=== PATIENT | female | born 1960 | race Caucasian/White ===

== ENCOUNTER 2016-10-03 19:22 | Inpatient (IN) | payer MEDICAID ==
[~2016-10-03] VITALS: Ht 162.6 cm; Wt 88.4 kg
[~2016-10-03 19:22] MED LIST: ARIP5TAB13; ASPI-231 PO; BACL-63 PO; BUME1TAB PO; BUPR75TA4; CARV6.2551 PO; CLOP75TA41 PO; ESOM40CA39; ETOD400T PO; FERR325T PO; HYDR-2652 PO; LOS50T PO; METF-316 PO; NITR0.4S29 SL; OMEP20CA5 PO; POTA8TAB2 PO; PREG75CA PO; TRAM-297 PO
[2016-10-03 21:26] LABS: Basophils # (auto) 0 uL; DEFINITIVE VIEW TRANSMISSION; Eosinophils # (auto) 0.1 uL; Hemoglobin 9.3 g/dL (12.2-16.2); SUSPECT VIEW TRANSMISSION
[2016-10-03 21:31] LABS: Eosinophils % (auto) 1.8 % (0.0-7.0); Lymphocytes % (auto) 14.5 % (10.0-50.0); Mean Corpuscular Hemoglobin 19.4 pg (28.0-32.0); Mean Corpuscular Hgb Conc. 28.3 g/dL (32.0-36.0); Mean Corpuscular Volume 68.7 fL (80.0-100.0); Mean Platelet Volume 10.6 fL (7.4-10.4); Monocytes # (auto) 0.7 uL; Monocytes % (auto) 11.2 % (0.0-12.0); Neutrophils # (auto) 4.8 uL; Neutrophils % (auto) 72.5 % (37.0-80.0); Platelet Count (auto) 151 10^3/uL (140-450); White Blood Cell 6.6 10^3/uL (4.4-10.8)
[2016-10-03 22:10] LABS: Anisocytosis Moderate; Hypochromia Moderate; Ovalocytes MODERATE; Platelet Estimate Adequate
[2016-10-03 22:11] LABS: Burr Cells FEW; Microcytosis Marked
[2016-10-03 22:21] LABS: BUN/Creatinine Ratio 15.7; Calcium 8.2 mg/dL (8.5-10.1); Potassium 3.5 mmol/L (3.5-5.1)
[2016-10-03 22:23] LABS: Bilirubin, Total 0.3 mg/dL (0.2-1.0); Total Protein 5.9 g/dL (6.4-8.2)
[2016-10-03] MEDS ORDERED: IPRATROPIUM BROM 0.5 MG/2.5ML INH SOL NEB ONE (23:45)
[2016-10-03] MEDS ORDERED: ALBUTEROL SULF 2.5 MG/0.5ML(0.5%) NEB SOLN NEB ONE (23:45)
[2016-10-04] MEDS ORDERED: cefTRIAXone 1GM/50ML D5W 50 ML IV ONE ×2 (05:45→10:30)
[2016-10-04] MEDS ORDERED: MORPHINE SULF INJ 2 MG/ML SYRINGE 1ML IV PRN ×2 (10:00)
[2016-10-04] MEDS ORDERED: ONDANSETRON HCL 4 MG/2 ML VIAL IV PRN (10:00)
[2016-10-04] MEDS ORDERED: DOCUSATE SOD 100 MG CAP PO PRN (10:00)
[2016-10-04] MEDS ORDERED: NITROGLYCERIN 0.4 MG SL TAB SL PRN (10:00)
[2016-10-04] MEDS ORDERED: TEMAZEPAM 15 MG CAP PO PRN (10:00)
[2016-10-04 10:03] LABS: Urine Bilirubin Negative (Negative); Urine Blood Negative /uL (Negative); Urine Color Yellow (Yellow); Urine Ketone Negative (Negative); Urine Nitrite Negative (Negative); Urine RBC 2 /hpf (0 - 4); Urine Squamous Epithelial Cell FEW /hpf (<5); Urine Urobilinogen Normal (Negative); Urine pH 5.5 (5.0-8.0)
[2016-10-04 10:07] LABS: Urine Glucose 4+ mg/dL (Normal)
[2016-10-04] MEDS ORDERED: AZITHROMYCIN 500MG/D5W 250ML 250 ML IV ONE (10:15)
[2016-10-04] MEDS ORDERED: BACLOFEN 10 MG TAB PO PRN (10:15)
[2016-10-04] MEDS ORDERED: traMADol HCL 50 MG TAB PO PRN (10:15)
[2016-10-04] MEDS ORDERED: ASPirin-EC 81 mg tab PO ONE (10:30)
[2016-10-04] MEDS ORDERED: BUMETANIDE 1 MG TAB PO ONE (10:30)
[2016-10-04] MEDS ORDERED: buPROPion HCL 75 MG TAB PO ONE (10:30)
[2016-10-04] MEDS ORDERED: chlordiazePOXIDE HCL 25 MG CAP PO PRN (10:30)
[2016-10-04] MEDS ORDERED: THIAMINE INJ 100 MG, MULTIPLE VITAMIN 10 ML, FOLIC ACID 1 MG, MAGNESIUM SULF SDV 50% 8 ... IV ONE ×5 (10:30)
[2016-10-04] MEDS ORDERED: CARVEDILOL 3.125 MG TAB PO ONE (10:30)
[2016-10-04] MEDS ORDERED: PHYTONADIONE (VIT K)10 MG/ML 1ML VIAL SUBCUT ONE (10:30)
[2016-10-04] MEDS ORDERED: PANTOPRAZOLE 40 MG TAB PO ONE (10:30)
[2016-10-04] MEDS ORDERED: ALUM & MAG HYDROX-SIMETH LIQ(MAALOX) 30 ML PO PRN (10:30)
[2016-10-04] MEDS: MULTIPLE VITAMIN TAB PO SCH (11:13)
[2016-10-04] MEDS: FAMOTIDINE 20 MG TAB PO SCH ×2 (11:21→21:39)
[2016-10-04] MEDS: hydrALAZINE HCL 25 MG TAB PO SCH ×3 (12:13→21:47)
[2016-10-04] MEDS: Boost Glucose Control 8 Ounces PO SCH ×2 (12:14→18:29)
[2016-10-04] MEDS: IPRATROPIUM BROM 0.5 MG/2.5ML INH SOL NEB SCH ×2 (12:50→19:04)
[2016-10-04] MEDS: ALBUTEROL SULF 2.5 MG/0.5ML(0.5%) NEB SOLN NEB SCH ×2 (12:50→19:04)
[2016-10-04 13:00] VITALS: BP 158/96
[2016-10-04] MEDS: PREGABALIN CAPSULE 75 MG CAP PO SCH ×2 (13:54→21:39)
[2016-10-04] MEDS: SODIUM CHLOR 0.9% PF (SALINE LOCK) 10ML VIAL IV SCH ×2 (13:55→22:07)
[2016-10-04 14:13] VITALS: BP 158/96
[2016-10-04 14:39] LABS: INR 1.09 (0.9-1.15); Prothrombin Time 11.2 sec (9.37-12.3)
[2016-10-04 17:00] VITALS: BP 143/82
[2016-10-04] MEDS: metFORMIN HYDROCHLORIDE 500 MG TAB PO SCH (17:23)
[2016-10-04] MEDS: FERROUS SULFATE 325 MG TAB PO SCH (17:23)
[2016-10-04] MEDS: BUMETANIDE 1 MG TAB PO SCH (17:23)
[2016-10-04] MEDS: buPROPion HCL 75 MG TAB PO SCH (17:23)
[2016-10-04] MEDS: ACETAMINOPHEN 325 MG TAB PO PRN (18:29)
[2016-10-04 20:59] VITALS: BP 143/82
[2016-10-04] MEDS: CARVEDILOL 3.125 MG TAB PO SCH (21:38)
[2016-10-04] MEDS: POTASSIUM CHLORIDE 8 MEQ TAB PO SCH (21:39)
[2016-10-04] MEDS: ATENOLOL 25 MG TAB PO SCH (21:47)
[2016-10-04 22:00] VITALS: BP 103/51
[2016-10-04] MEDS ORDERED: PATIENTS OWN MEDICATION PO SCH ×2 (22:00)
[2016-10-04] MEDS: ETODOLAC 400 MG PO SCH (22:00)
[2016-10-05] MEDS: ALBUTEROL SULF 2.5 MG/0.5ML(0.5%) NEB SOLN NEB SCH ×4 (00:50→18:50)
[2016-10-05] MEDS: IPRATROPIUM BROM 0.5 MG/2.5ML INH SOL NEB SCH ×4 (00:50→18:50)
[2016-10-05 05:00] VITALS: BP 151/72
[2016-10-05] MEDS: BUMETANIDE 1 MG TAB PO SCH ×2 (06:33→19:02)
[2016-10-05] MEDS: hydrALAZINE HCL 25 MG TAB PO SCH ×4 (06:34→21:24)
[2016-10-05] MEDS: buPROPion HCL 75 MG TAB PO SCH ×2 (06:34→19:02)
[2016-10-05] MEDS: PREGABALIN CAPSULE 75 MG CAP PO SCH ×3 (06:34→21:24)
[2016-10-05] MEDS: metFORMIN HYDROCHLORIDE 500 MG TAB PO SCH ×2 (06:35→19:02)
[2016-10-05] MEDS: SODIUM CHLOR 0.9% PF (SALINE LOCK) 10ML VIAL IV SCH ×2 (06:35→14:40)
[2016-10-05 08:00] LABS: Basophils # (auto) 0 uL; DEFINITIVE VIEW TRANSMISSION; Eosinophils # (auto) 0.1 uL; Hematocrit 31.1 % (36.0-46.0); Hemoglobin 9.1 g/dL (12.2-16.2); Lymphocytes # (auto) 1.1 uL; Lymphocytes % (auto) 21.1 % (10.0-50.0); Mean Corpuscular Hemoglobin 19.4 pg (28.0-32.0); Mean Corpuscular Hgb Conc. 29.2 g/dL (32.0-36.0); Mean Corpuscular Volume 66.3 fL (80.0-100.0); Mean Platelet Volume 10.4 fL (7.4-10.4); Monocytes # (auto) 0.6 uL; Monocytes % (auto) 10.9 % (0.0-12.0); Neutrophils # (auto) 3.6 uL; Platelet Count (auto) 228 10^3/uL (140-450); Red Cell Distribution Width 19.8 % (11.6-16.0); SUSPECT VIEW TRANSMISSION; White Blood Cell 5.4 10^3/uL (4.4-10.8)
[2016-10-05 08:02] LABS: Albumin 3.1 g/dL (3.4-5.0); BUN/Creatinine Ratio 22.2; Calcium 8.6 mg/dL (8.5-10.1); Potassium 3.3 mmol/L (3.5-5.1)
[2016-10-05 08:05] LABS: Bilirubin, Total 0.5 mg/dL (0.2-1.0); Total Protein 6.3 g/dL (6.4-8.2)
[2016-10-05] MEDS: FERROUS SULFATE 325 MG TAB PO SCH ×2 (08:08→19:01)
[2016-10-05] MEDS: Boost Glucose Control 8 Ounces PO SCH ×3 (08:47→19:02)
[2016-10-05 09:00] VITALS: BP 106/59
[2016-10-05 09:05] LABS: Platelet Estimate Adequate
[2016-10-05 09:06] LABS: Giant Platelets Few; Ovalocytes FEW
[2016-10-05 09:07] LABS: Hypochromia Marked; Microcytosis Marked
[2016-10-05 09:08] LABS: Anisocytosis Moderate
[2016-10-05] MEDS: cefTRIAXone 1GM/50ML D5W 50 ML IV SCH (09:23)
[2016-10-05] MEDS: ABILIFY 5MG TABLET PO SCH ×2 (10:00)
[2016-10-05] MEDS ORDERED: PATIENTS OWN MEDICATION PO SCH ×2 (10:00)
[2016-10-05] MEDS: ETODOLAC 400 MG PO SCH ×2 (10:00→22:00)
[2016-10-05] MEDS ORDERED: AZITHROMYCIN 500MG/D5W 250ML 250 ML IV SCH (10:00)
[2016-10-05] MEDS: MULTIPLE VITAMIN TAB PO SCH (10:50)
[2016-10-05] MEDS: FAMOTIDINE 20 MG TAB PO SCH (10:50)
[2016-10-05] MEDS: PANTOPRAZOLE 40 MG TAB PO SCH (10:51)
[2016-10-05] MEDS: POTASSIUM CHLORIDE 8 MEQ TAB PO SCH (10:51)
[2016-10-05] MEDS: ATENOLOL 25 MG TAB PO SCH (10:51)
[2016-10-05] MEDS: ASPirin-EC 81 mg tab PO SCH (10:51)
[2016-10-05] MEDS: CARVEDILOL 3.125 MG TAB PO SCH ×2 (10:52→21:23)
[2016-10-05] MEDS: LOSARTAN POTASSIUM 50 MG TAB PO SCH (10:53)
[2016-10-05] MEDS: ACETAMINOPHEN 325 MG TAB PO PRN (10:59)
[2016-10-05 13:00] VITALS: BP 100/51
[2016-10-05] MEDS ORDERED: LIDOCAINE 1% HCL (LOCAL ANESTH.) INJ 20ML MDV ID ONE (14:45)
[2016-10-05 17:00] VITALS: BP 149/76
[2016-10-05] MEDS: POTASSIUM CHL 20 Meq TABLET PO SCH (21:23)
[2016-10-05 22:00] VITALS: BP 135/67
[2016-10-06] MEDS: IPRATROPIUM BROM 0.5 MG/2.5ML INH SOL NEB SCH ×4 (00:26→18:00)
[2016-10-06] MEDS: ALBUTEROL SULF 2.5 MG/0.5ML(0.5%) NEB SOLN NEB SCH ×4 (00:26→18:00)
[2016-10-06] MEDS: SODIUM CHLOR 0.9% PF (SALINE LOCK) 10ML VIAL IV SCH ×7 (03:10→22:29)
[2016-10-06 05:30] VITALS: BP 118/64
[2016-10-06] MEDS: buPROPion HCL 75 MG TAB PO SCH ×2 (05:59→18:22)
[2016-10-06] MEDS: BUMETANIDE 1 MG TAB PO SCH ×2 (06:00→18:22)
[2016-10-06] MEDS: hydrALAZINE HCL 25 MG TAB PO SCH ×4 (06:01→22:32)
[2016-10-06] MEDS: PREGABALIN CAPSULE 75 MG CAP PO SCH ×3 (06:02→22:29)
[2016-10-06] MEDS: metFORMIN HYDROCHLORIDE 500 MG TAB PO SCH ×2 (06:03→18:21)
[2016-10-06 06:42] LABS: Basophils # (auto) 0 uL; Basophils % (auto) 0.3 % (0.0-2.0); DEFINITIVE VIEW TRANSMISSION; Eosinophils # (auto) 0.1 uL; Eosinophils % (auto) 2.8 % (0.0-7.0); Hematocrit 28.5 % (36.0-46.0); Hemoglobin 8.1 g/dL (12.2-16.2); Lymphocytes # (auto) 1.1 uL; Lymphocytes % (auto) 20.7 % (10.0-50.0); Mean Corpuscular Hemoglobin 19.2 pg (28.0-32.0); Mean Corpuscular Hgb Conc. 28.6 g/dL (32.0-36.0); Mean Corpuscular Volume 67.2 fL (80.0-100.0); Mean Platelet Volume 10.7 fL (7.4-10.4); Monocytes # (auto) 0.7 uL; Monocytes % (auto) 14.3 % (0.0-12.0); Neutrophils # (auto) 3.2 uL; Neutrophils % (auto) 61.9 % (37.0-80.0); Platelet Count (auto) 229 10^3/uL (140-450); White Blood Cell 5.2 10^3/uL (4.4-10.8)
[2016-10-06 07:06] LABS: Albumin 2.7 g/dL (3.4-5.0); BUN/Creatinine Ratio 26.5; Calcium 8.1 mg/dL (8.5-10.1); Magnesium 1.4 mg/dL (1.6-2.6); Potassium 3.5 mmol/L (3.5-5.1)
[2016-10-06 07:09] LABS: Bilirubin, Total 0.3 mg/dL (0.2-1.0); Total Protein 5.6 g/dL (6.4-8.2)
[2016-10-06 07:18] LABS: Red Cell Distribution Width 20.4 % (11.6-16.0)
[2016-10-06] MEDS: Boost Glucose Control 8 Ounces PO SCH ×3 (07:54→18:22)
[2016-10-06] MEDS: FERROUS SULFATE 325 MG TAB PO SCH ×2 (07:54→18:22)
[2016-10-06 08:52] VITALS: BP 134/75
[2016-10-06] MEDS: cefTRIAXone 1GM/50ML D5W 50 ML IV SCH (09:46)
[2016-10-06] MEDS: POTASSIUM CHL 20 Meq TABLET PO SCH ×2 (09:47→22:33)
[2016-10-06] MEDS: PANTOPRAZOLE 40 MG TAB PO SCH (09:47)
[2016-10-06] MEDS: ETODOLAC 400 MG PO SCH ×2 (09:47→22:00)
[2016-10-06] MEDS: ABILIFY 5MG TABLET PO SCH ×2 (09:47)
[2016-10-06] MEDS: AZITHROMYCIN 250 MG TAB PO SCH (09:47)
[2016-10-06] MEDS: MULTIPLE VITAMIN TAB PO SCH (09:48)
[2016-10-06] MEDS: LOSARTAN POTASSIUM 50 MG TAB PO SCH (09:48)
[2016-10-06] MEDS: ASPirin-EC 81 mg tab PO SCH (09:48)
[2016-10-06] MEDS: CARVEDILOL 3.125 MG TAB PO SCH ×2 (09:49→22:31)
[2016-10-06 11:31] LABS: Basophils # (auto) 0.1 uL; Basophils % (auto) 0.9 % (0.0-2.0); DEFINITIVE VIEW TRANSMISSION; Eosinophils # (auto) 0.1 uL; Eosinophils % (auto) 1.5 % (0.0-7.0); Hematocrit 28.2 % (36.0-46.0); Hemoglobin 8.1 g/dL (12.2-16.2); Lymphocytes # (auto) 0.8 uL; Lymphocytes % (auto) 13.3 % (10.0-50.0); Mean Corpuscular Hemoglobin 19.2 pg (28.0-32.0); Mean Corpuscular Hgb Conc. 28.8 g/dL (32.0-36.0); Mean Corpuscular Volume 66.6 fL (80.0-100.0); Mean Platelet Volume 10.2 fL (7.4-10.4); Monocytes # (auto) 0.7 uL; Monocytes % (auto) 12.6 % (0.0-12.0); Neutrophils # (auto) 4.2 uL; Neutrophils % (auto) 71.7 % (37.0-80.0); Platelet Count (auto) 212 10^3/uL (140-450); SUSPECT VIEW TRANSMISSION; White Blood Cell 5.9 10^3/uL (4.4-10.8)
[2016-10-06 11:59] LABS: Potassium 3.5 mmol/L (3.5-5.1)
[2016-10-06 12:01] LABS: Albumin 2.6 g/dL (3.4-5.0); BUN/Creatinine Ratio 30.8; Bilirubin, Total 0.3 mg/dL (0.2-1.0); Calcium 8.3 mg/dL (8.5-10.1); Total Protein 5.6 g/dL (6.4-8.2)
[2016-10-06 12:17] LABS: Anisocytosis Moderate; Hypochromia Moderate; Microcytosis Moderate; Ovalocytes FEW; Platelet Estimate Adequate
[2016-10-06 12:23] LABS: Anisocytosis Moderate; Platelet Estimate Adequate
[2016-10-06 12:24] LABS: Hypochromia Moderate; Large Platelets FEW; Microcytosis Moderate; Ovalocytes FEW
[2016-10-06 12:45] VITALS: BP 104/41
[2016-10-06] MEDS: ACETAMINOPHEN 325 MG TAB PO PRN (15:58)
[2016-10-06 17:00] VITALS: BP 125/65
[2016-10-06 20:00] VITALS: BP 110/67
[2016-10-06 21:10] VITALS: BP 110/67
[2016-10-06] MEDS: HYDROcodone-ACET 5/325MG TAB PO PRN (22:39)
[2016-10-07 04:56] VITALS: BP 132/73
[2016-10-07] MEDS: PREGABALIN CAPSULE 75 MG CAP PO SCH (06:04)
[2016-10-07] MEDS: hydrALAZINE HCL 25 MG TAB PO SCH ×2 (06:05→12:00)
[2016-10-07] MEDS: BUMETANIDE 1 MG TAB PO SCH (06:05)
[2016-10-07] MEDS: buPROPion HCL 75 MG TAB PO SCH (06:23)
[2016-10-07] MEDS: metFORMIN HYDROCHLORIDE 500 MG TAB PO SCH (06:24)
[2016-10-07] MEDS: SODIUM CHLOR 0.9% PF (SALINE LOCK) 10ML VIAL IV SCH ×2 (06:24→09:51)
[2016-10-07] MEDS: IPRATROPIUM BROM 0.5 MG/2.5ML INH SOL NEB SCH ×2 (06:53)
[2016-10-07] MEDS: ALBUTEROL SULF 2.5 MG/0.5ML(0.5%) NEB SOLN NEB SCH ×2 (06:53)
[2016-10-07] MEDS: FERROUS SULFATE 325 MG TAB PO SCH (08:00)
[2016-10-07] MEDS: Boost Glucose Control 8 Ounces PO SCH ×2 (08:00→12:00)
[2016-10-07 08:55] VITALS: BP 127/57
[2016-10-07] MEDS: cefTRIAXone 1GM/50ML D5W 50 ML IV SCH (09:43)
[2016-10-07] MEDS: LOSARTAN POTASSIUM 50 MG TAB PO SCH (09:47)
[2016-10-07] MEDS: CARVEDILOL 3.125 MG TAB PO SCH (09:48)
[2016-10-07] MEDS: POTASSIUM CHL 20 Meq TABLET PO SCH (09:48)
[2016-10-07] MEDS: MULTIPLE VITAMIN TAB PO SCH (09:49)
[2016-10-07] MEDS: HYDROcodone-ACET 5/325MG TAB PO PRN (09:49)
[2016-10-07] MEDS: ASPirin-EC 81 mg tab PO SCH (09:49)
[2016-10-07] MEDS: ETODOLAC 400 MG PO SCH (09:51)
[2016-10-07] MEDS: PANTOPRAZOLE 40 MG TAB PO SCH (09:51)
[2016-10-07] MEDS: ABILIFY 5MG TABLET PO SCH ×2 (09:51)
[2016-10-07] MEDS: AZITHROMYCIN 250 MG TAB PO SCH (09:52)
[2016-10-07 10:52] VITALS: BP 127/57
[2016-10-07 12:47] VITALS: BP 110/61
== END 2016-10-07 13:51 | disposition home or self-care (01) | DRG 140 ==
LOC: EDBD 19:22 → ER 19:32 → TELE 19:33 → TELE-EAST 10-04 11:57
PROVIDERS: ADMIT Internal Medicine; ATTEND Internal Medicine
PROC: 02HV33Z Insertion of Infusion Device into Superior Vena Cava, Percutaneous Approach (ICD-10-PCS; principal; 2016-10-04)
PROC: 0W9B3ZZ Drainage of Left Pleural Cavity, Percutaneous Approach (ICD-10-PCS; 2016-10-06)
DX: J44.0 Chronic obstructive pulmonary disease with (acute) lower respiratory infection (principal); J96.01 Acute respiratory failure with hypoxia; E43 Unspecified severe protein-calorie malnutrition; J18.9 Pneumonia, unspecified organism; I11.0 Hypertensive heart disease with heart failure; I50.9 Heart failure, unspecified; J45.901 Unspecified asthma with (acute) exacerbation; E83.51 Hypocalcemia; K74.60 Unspecified cirrhosis of liver; J44.1 Chronic obstructive pulmonary disease with (acute) exacerbation; K70.9 Alcoholic liver disease, unspecified; E78.00 Pure hypercholesterolemia, unspecified; E66.01 Morbid (severe) obesity due to excess calories; E05.90 Thyrotoxicosis, unspecified without thyrotoxic crisis or storm; E44.0 Moderate protein-calorie malnutrition; E11.9 Type 2 diabetes mellitus without complications; E78.5 Hyperlipidemia, unspecified; D63.8 Anemia in other chronic diseases classified elsewhere; F10.10 Alcohol abuse, uncomplicated; F17.210 Nicotine dependence, cigarettes, uncomplicated; G40.909 Epilepsy, unspecified, not intractable, without status epilepticus; Z82.49 Family history of ischemic heart disease and other diseases of the circulatory system; Z83.3 Family history of diabetes mellitus; Z91.19 Patient's noncompliance with other medical treatment and regimen; Z68.33 Body mass index [BMI] 33.0-33.9, adult
CPT/HCPCS: 36415; 36569; 36600; 71010; 71250; 80053; 80320; 81001; 82270; 82805; 82962; 83036; 83605; 83735; 85025; 85610; 87040; 87081; 87493; 94640; 96365; G0434; J0696; J3430